=== PATIENT | female | born 1995 | race Caucasian/White ===

== ENCOUNTER 2016-12-07 19:32 | Emergency (ER) | payer OTHER, MEDICARE ==
[~2016-12-07] VITALS: Ht 165.1 cm; Wt 59.0 kg
--- NOTE | 2016-12-07 19:53 | ED GENERAL ADULT ---
History of Present Illness General Chief Complaint: ETOH/Drug Related Complaint Stated Complaint: BIBA FOR OVERDOSE Source: patient Exam Limitations: intoxication Vital Signs & Intake/Output Vital Signs & Intake/Output Vital Signs Date Time Temp Pulse Resp B/P Pulse O2 O2 Flow FiO2 Ox Delivery Rate 12/07 2126 96 Room Air 12/07 2041 98.8 86 18 94/60 96 Room Air Allergies Coded Allergies: Sulfa (Sulfonamide Antibiotics) (RASH 06/30/16) Triage Note: PT BIBA S/P HEROIN OVERDOSE.PT RECIEVED 2MG NARCAN BY EMS AND RESPONDED. PT ARRIVES ALERT AND ORIENTED. LISY NOTED. PT WAS IN REHAB IN AUGUST AND ADMITS TO USING AGAIN STARTING A COUPLE WEEKS AGO. Triage Nurses Notes Reviewed? yes Onset: Just prior to arrival Duration: minute(s): (30) Timing: remote history Injury Environment: home Severity: severe No Modifying Factors: none HPI: Patient is a 21-year-old female with history of heroin abuse presenting to the emergency department via EMS for overdose. Patient reports that she found a syringe that was already loaded with drugs in her drawer and injected herself. The next thing she knew she was lightheaded and her friends lowered her to the ground. She woke up in the ambulance. Her friends called EMS. She had passed out. EMS reports that she did 2 bags of heroin. She received 2 mg of Narcan en route. She is denying any nausea or vomiting. Denies any pain. She reports that she uses heroin on and off for the past 6 months. She usually injects it. Denies any other drug use. She reports that she had a few alcoholic beverages this evening. Denies any suicidal ideation or homicidal ideation. This was not an attempt to commit suicide. (ERNESTO MTZ) Past History Travel History Traveled to [place] past 21 day No Medical History Any Pertinent Medical History? see below for history Neurological: NONE EENT: NONE Cardiovascular: NONE Respiratory: NONE Gastrointestinal: NONE Hepatic: NONE Renal: NONE Musculoskeletal: NONE Psychiatric: bipolar disease, multiple personality disorder receives ECT at [place]. Endocrine: NONE Blood Disorders: NONE Cancer(s): NONE [employer]/Reproductive: NONE Surgical History Surgical History: N Psychosocial History Who do you live with Mother What is your primary language Bel[place]ian Family History Hx Contributory? No (ERNESTO MTZ) Review of Systems Review of Systems Constitutional: Reports: no symptoms. Comments Review of systems: See HPI, All other systems negative. Constitutional, no chills fever or weight loss HEENT: No visual changes no sore throat no congestion Cardiovascular: No chest pain ,palpitation Skin, no jaundice no rashes Respiratory: No dyspnea cough sputum or hemoptysis GI: No nausea no vomiting : No dysuria No hematuria Muscle skeletal: no back pain, no neck pain, Neurologic: No numbness no confusion Psych: No stress anxiety or depression,. Heme/endocrine: No bruising no bleeding no polyuria or polydipsia Immunology: No splenectomy or history of AIDS (ERNESTO MTZ) Physical Exam Physical Exam General Appearance: well developed/nourished, no apparent distress, alert, awake , comfortable Comments: Well-developed well-nourished person in no acute distress HEENT: extraocular motion intact, no nystagmus. Pupils are pinpoint, equally round and reactive to light and accommodation. Nose is atraumatic.Pharynx normal. No swelling or edema. Neck: Supple, no lymphadenopathy, normal range of motion without pain or tenderness Back: Nontender Cardiovascular: Regular rate and rhythms no murmurs rubs or gallops, normal JVP Respiratory: Chest nontender. No respiratory distress.breath sounds clear to auscultation bilaterally Extremity: No edema, full range of motion of all extremities without difficulty or pain. Neuro: Alert oriented x3, motor sensory normal, cranial nerves II through XII grossly intact. Cerebellar testing is unremarkable. Skin: No appreciable rash on exposed skin, skin is warm and dry. Psych: Mood and affect is normal, memory and judgment is normal. Core Measures ACS in differential dx? No CVA/TIA Diagnosis: No Severe Sepsis Present: No Septic Shock Present: No (ERNESTO MTZ) Progress Differential Diagnoses I considered the following diagnoses in my evaluation of the patient: Opiate overdose, polysubstance overdose Plan of Care: Orders Procedure Date/time Status Telemetry/Family Consultant 12/07 1954 Active Patient Safety Monitor 12/07 1951 Active URINE 12/07 1951 Complete URINE DRUG SCREEN FOR ER ONLY 12/07 1951 Complete URINALYSIS 12/07 1951 Complete COMPREHENSIVE METABOLIC PANEL 12/07 1951 Complete CBC WITHOUT DIFFERENTIAL 12/07 1951 Complete Laboratory Tests 12/07/16 2040: Anion Gap 15, Estimated GFR > 60, BUN/Creatinine Ratio 15.6, Glucose 93, Calcium 9.5, Total Bilirubin 0.5, AST 26, ALT 32, Alkaline Phosphatase 88, Total Protein 7.7, Albumin 4.4, Globulin 3.3, Albumin/Globulin Ratio 1.3, CBC w Diff NO MAN DIFF REQ, RBC 4.71, MCV 90.0, MCH 30.1, RDW 12.1, MPV 7.1 L, Gran % 70.5, Lymphocytes % 19.1 L, Monocytes % 9.3, Eosinophils % 0.6, Basophils % 0.5, Absolute Granulocytes 5.3, Absolute Lymphocytes 1.4, Absolute Monocytes 0.7 H, Absolute Eosinophils 0, Absolute Basophils 0, PUBS MCHC 33.4 12/07/162033: Urine Opiates Screen > 4000.00 H, Methadone Screen < 40, Barbiturate Screen < 60, Ur Phencyclidine Scrn < 6.00, Amphetamines Screen < 100, U Benzodiazepines Scrn < 85, Urine Cocaine Screen < 50, Urine Cannabis Screen 5.00, Urinalysis LIGHT H, Urine Color YEL, Urine Clarity HAZY H, Urine pH 6.0, Ur Specific [place] 1.015, Urine Protein NEG, Urine Ketones NEG, Urine Nitrite NEG, Urine Bilirubin NEG, Urine Urobilinogen 0.2, Ur Leukocyte Esterase SMALL H, Ur Microscopic SEDIMENT EXAMINED, Urine RBC 5-10 H, Urine WBC 5-10 H, Ur Epithelial Cells MANY H, Urine Crystals 1+ CA OX H, Urine Mucus RARE, Urine Hemoglobin SMALL H, Urine Glucose NEG, Urine Test NEGATIVE Initial ED EKG: none Hand-Off Endorsed To: BULL PAGAN,ALMA Robles Endorsed Time: 2245 Pending: other Comments: 12/07/2016 8:37:20 PM on arrival patient in no acute distress. She does appear slightly intoxicated. Patient is alert and oriented 3. No deficits on exam. We will continue to monitor patient as patient did receive Narcan in route. 12/07/2016 10:46:53 PM patient will be signed out to Dr. Lino pending reevaluation at 11 PM. Patient is feeling well, vitals are stable patient can be safely discharged with a ride home. (ELVIN ESPINOSA,ERNESTO) Departure Departure Disposition: HOME OR SELF CARE Condition: Stable Clinical Impression Primary Impression: Polysubstance abuse Referrals: PETRA RESTREPO MD (PCP/Family) Additional Instructions: Avoid using narcotic drugs. Follow-up with your primary care physician. Return for worsening symptoms or concerns. Departure Forms: Customer Survey General Discharge Information (ERNESOT MTZ) PA/LUBE WORKER Co-Sign Statement Statement: ED Attending supervision documentation- [X] I saw and evaluated the patient. I have also reviewed all the pertinent lab results and diagnostic results. I agree with the findings and the plan of care as documented in the PA's/LUBE WORKER's documentation. [X] I have reviewed the ED Record and agree with the PA's/LUBE WORKER's documentation. [] Additions or exceptions (if any) to the PAs/LUBE WORKER's note and plan are summarized below: [] (BULL PAGAN,ALMA Robles) Critical Care Note Critical Care Note Critical Care Time: 30-74 min (ERNESTO MTZ)
[2016-12-07 21:20] LABS: ABSOLUTE BASOPHIL COUNT 0 /CUMM (0.0-0.2); ABSOLUTE EOSINOPHIL COUNT 0 /CUMM (0.0-0.7); ABSOLUTE GRANULOCYTE CT 5.3 /CUMM (1.4-6.5); ABSOLUTE LYMPH COUNT 1.4 /CUMM (1.2-3.4); ABSOLUTE MONOCYTE COUNT 0.7 /CUMM (0.10-0.60); BASOPHIL % 0.5 % (0.0-2.0); EOSINOPHIL % 0.6 % (0-5); GRANULOCYTE % 70.5 % (42.2-75.2); HEMATOCRIT 42.3 % (37-47); MEAN CORPUSCULAR HGB 30.1 PG (27.0-31.0); MEAN CORPUSCULAR HGB CONC 33.4 G/DL (33.0-37.0); MEAN PLATELET VOLUME 7.1 FL (7.4-10.4); PLATELET COUNT 310 /CUMM (130-400); RBC DISTRIBUTION WIDTH 12.1 % (11.5-14.5); RED BLOOD CELL CT 4.71 /CUMM (4.20-5.40); WHITE BLOOD CELL COUNT 7.5 /CUMM (4.8-10.8)
[2016-12-07 23:38] VITALS: BP 106/58
== END 2016-12-07 23:41 ==
LOC: ERH 19:32
PROVIDERS: Physician Assistant
DX: F11.10 Opioid abuse, uncomplicated (principal)
CPT/HCPCS: 80307; 81001; 81025